=== PATIENT | male | born 1955 | race Two or more races ===

== ENCOUNTER 2024-08-02 11:18 | Day surgery (SDC) | payer OTHER ==
[2024-07-30 16:12] VITALS: BMI 30.4
[2024-08-02 13:36] VITALS: TEMP 97
[2024-08-02 13:56] VITALS: RESP 16
[2024-08-02 13:57] VITALS: BP 100/62; PULSE 64
== END 2024-08-02 14:05 | disposition home or self-care (01) ==
LOC: FASU-ENDO 11:18
PROVIDERS: ATTEND Internal Medicine Gastroenterology
PROC: 3E0H8KZ Introduction of Other Diagnostic Substance into Lower GI, Via Natural or Artificial Opening Endoscopic (ICD-10-PCS; 2024-08-02)
PROC: 0DB98ZX Excision of Duodenum, Via Natural or Artificial Opening Endoscopic, Diagnostic (ICD-10-PCS; 2024-08-02)
PROC: 0DB68ZX Excision of Stomach, Via Natural or Artificial Opening Endoscopic, Diagnostic (ICD-10-PCS; 2024-08-02)
PROC: 0DBK8ZX Excision of Ascending Colon, Via Natural or Artificial Opening Endoscopic, Diagnostic (ICD-10-PCS; principal; 2024-08-02 13:05)
DX: Z12.11 Encounter for screening for malignant neoplasm of colon (principal); D50.9 Iron deficiency anemia, unspecified; D49.0 Neoplasm of unspecified behavior of digestive system; K29.50 Unspecified chronic gastritis without bleeding; B96.81 Helicobacter pylori [H. pylori] as the cause of diseases classified elsewhere; K63.89 Other specified diseases of intestine
CPT/HCPCS: 88305-TC; 88342-TC